=== PATIENT | female | born 1970 | race Caucasian/White ===

== ENCOUNTER 2023-08-24 10:42 | Emergency (ER) | payer SELFPAY ==
[~2023-08-24] VITALS: Ht 165.1 cm; Wt 65.0 kg
[2023-08-24 10:48] VITALS: TEMP 98.2; O2SAT 99
[2023-08-24] MEDS ORDERED: CYCLOBENZAPRINE 10MG TABLET PO ONE (12:15)
[2023-08-24] MEDS ORDERED: KETOROLAC 30MG/ML VIAL IM ONE (12:15)
[2023-08-24 12:50] VITALS: BP 110/53; PULSE 91; RESP 20
[2023-08-24] MEDS ORDERED: NAPR-1176 MT (13:35)
[2023-08-24] MEDS ORDERED: CYCL5TAB MT (13:35)
[2023-08-24] MEDS ORDERED: LIDO700A15 TP (13:35)
== END 2023-08-24 13:51 | disposition home or self-care (01) ==
LOC: ER 10:42
DX: M54.50 Low back pain, unspecified (principal); K80.20 Calculus of gallbladder without cholecystitis without obstruction; Z90.49 Acquired absence of other specified parts of digestive tract; Z90.710 Acquired absence of both cervix and uterus; Z98.890 Other specified postprocedural states; Z98.51 Tubal ligation status
CPT/HCPCS: 99283; 96372; J1885